=== PATIENT | male | born 1960 | race Caucasian/White ===

== ENCOUNTER 2017-04-08 05:40 | Inpatient (IN) | payer BC ==
[2017-04-06 09:55] LABS: BASOPHILS 0.5 % (0-2); HEMOGLOBIN 14.5 g/dL (13.5-17.5); IMMATURE GRANULOCYTES 0.2 % (0-5); LYMPHOCYTES 21.7 % (15-50); MCH 30.3 pg (26.0-34.0); MCHC 34.5 g/dL (31.0-37.0); MCV 87.9 fL (80.0-100.0); MEAN PLATELET VOLUME 10.6 fL (7.4-10.4); MONOCYTES 7.3 % (2-11); NEUTROPHILS 66.3 % (40-80); PLATELET COUNT 214 10x3/uL (130-400); RBC 4.78 10x6/uL (4.20-6.10); RDW 12.7 % (11.5-14.5); WBC 9.5 10x3/uL (4.8-10.8)
[2017-04-06 10:06] LABS: ANION GAP 12.9 mmol/L (8-16); CALCIUM 9.2 mg/dL (8.5-10.1); CARBON DIOXIDE 26.5 mmol/L (21.0-32.0); CREATININE - SERUM 1.4 mg/dL (0.6-1.3); POTASSIUM - SERUM 4.4 mmol/L (3.5-5.1)
[2017-04-06 10:18] LABS: APTT 26.5 SECONDS (22.8-39.4)
[2017-04-06 10:19] LABS: INR 1.03 (0.85-1.17); PROTIME 13.1 SECONDS (11.6-15.0)
[~2017-04-08] VITALS: Ht 188 cm; Wt 89.5 kg
[2017-04-08] VITALS (13 sets, daily range): BP systolic 137–177; BP diastolic 64–83; Ht 188 cm; Wt 89.5 kg
--- NOTE | ~2017-04-08 | OP ---
PATIENT NAME: CESIA FERNANDEZ MEDICAL RECORD: [id number] :62 LOCATION:[id number] ADMISSION DATE:04/08/17 SURGEON: CELENA ROSE MD DATE OF OPERATION: 04/08/2017 ASSISTANCE NOTE I assisted Dr. Moya with a left carotid endarterectomy and bovine graft patch angioplasty. Due to the complexity of the procedure, it was necessary for two attending surgeons to be present during the procedure. I was present for all the critical portions of the procedure. I scrubbed in as he had opened the left neck and was isolating the left internal jugular vein. My involvement in the operation included some irrigation and suctioning. Assistance with the endarterectomy. Assistance with fashioning the graft patch angioplasty. Eversion of vessels during the endarterectomy. I also sutured about half of the graft patch angioplasty onto the arteriotomy. I assisted with isolation of vessels and with their retraction. I assisted with placement of the vascular shunt and then decannulation of the shunt. I scrubbed out as he was beginning to close the left neck. TRANSINT:[id number] Voice Confirmation ID: [id number] DOCUMENT ID: [id number] CELENA ROSE MD at 0938 CC: GALEN MOYA MD [id number] DICTATION DATE: 04/09/17 1630 SIGN MAKER: 04/09/17 2324 DIS IN 04/10/17 [facility] [address] [place] [address]
--- NOTE | ~2017-04-08 | OP ---
PATIENT NAME: CESIA FERNANDEZ MEDICAL RECORD: [id number] :62 LOCATION:[facility] ADMISSION DATE:04/08/17 SURGEON: RENZO VILLANUEVA MD DATE OF OPERATION: 04/08/2017 PREOPERATIVE DIAGNOSES: Diabetes mellitus, history of multiple transient ischemic attacks, stroke history, significant carotid artery disease, left greater than right. POSTOPERATIVE DIAGNOSES: Diabetes mellitus, history of multiple transient ischemic attacks, stroke history, significant carotid artery disease, left greater than right. PROCEDURE: Left carotid endarterectomy with bovine patch angioplasty. SURGEON: Renzo Villanueva MD CO-SURGEON: Azael Urbano MD FLUIDS: Per anesthesia record. ESTIMATED BLOOD LOSS: 50. ANTICOAGULANTS GIVEN DURING THE CASE: 10,000 of heparin. SPECIMEN: Carotid plaque to pathology. DISPOSITION: Awake to PACU. Neurologically intact, moving all extremities and intact voice with intact lip and tongue movements, answering appropriate questions. INDICATIONS FOR THE PROCEDURE: Mr. Fernandez is a 57-year-old male under the care of Dr. Jeffery, who has had multiple TIAs in the past. A CT was performed, which showed a significant lesion on the left. It was his left eye that was having issues with amaurosis and TIA symptoms. He also has significant peripheral artery disease with a left carotid origin stenosis as well as some disease on the right. We placed him on Eliquis on top of his Plavix for protection. Symptoms stabilized. The risks, alternatives, and benefits of a left CEA were discussed. I felt he had an elevated risk of having an intraoperative stroke and all of this was discussed with him in the clinic setting before the operation and he agreed to proceed. PROCEDURE IN DETAIL: After positive identification, informed consent was obtained, the patient was taken to the operating room, laid supine on the operating table. Monitoring lines included EKG pad and a blood pressure cuff and A-line placed by anesthesia in the left arm before the procedure. The antibiotics were given within 1 hour of incision and SCDs were placed for DVT prophylaxis. An attempt was made to place a Toscano for the case; however, there was difficulty passing the Toscano and urology was consulted. Urology came in. Using a cystoscope, was able place the Toscano. They did feel that there was some injury to the urethra from the Toscano insertion and was able to place the Toscano successfully and there was draining red-tinged urine. Next, we chose to have urology come in and place this given that he was on blood thinners and I did not feel it was appropriate to try any other means. Next, the left neck was outstretched. The distal cervical spine and proximal thoracic spine was OPERATIVE REPORT [id number] CESIA FERNANDEZ supported, was placed over a bump to help with extension of his neck. His head was turned to the right. The neck was then prepped and draped in standard fashion from the ear to the sternum and midline to the shoulder. A surgical timeout was performed and all members agreed to proceed. I began the procedure by first exposing the carotid artery. Utilizing anatomical starr from the mastoid to the sternal notch, an approximately 4 cm incision was made on the anterior aspect of the sternocleidomastoid. Dissection was afforded down through the soft tissues. Platysma muscle was identified and split with electrocautery. Weitlaner was used for retraction. Dissection was afforded down through the soft tissues and the sternocleidomastoid was appreciated. Then again, using blunt dissection, we carefully isolated the internal jugular vein. The facial vein was taken between transfixed ties and helped with our exposure. The carotid artery was identified. We carefully anticoagulated him with 10,000 units of heparin. Of note, he was on Eliquis, aspirin, and Plavix up to the moment of surgery. We continued our dissection and then carefully started to isolate the common carotid artery. Once the common carotid artery was carefully isolated with vessel loops. Next, we started to march up the carotid artery and we located the carotid sinus. It was quite evident there was a considerable amount of plaque within the bulb. This could be palpated externally. We continued first dissecting out the thyroid artery, which was taken between ties. Next, the external was carefully isolated with a vessel loop and then the internal was isolated. We felt that we found possibly the ansa nerve branches. These were carefully deflected softly and we carefully were able to get 2 cm of internal carotid with a nice soft spot distally. We carefully looked at the plaque. The plaque appeared to be about 2.5 cm in length and it was from the mid portion of the carotid up into the internal. Once this was identified and marked, we could feel soft spots on this internal and the common and once all was in readiness and after he was heparinized. we carefully clamped the internal, the common, and then excluded the external in the thyroid artery. Utilizing an 11 blade, the anterior surface of the common carotid artery was opened. Utilizing the Jansen this was extended on to the internal. We next identified nearly occlusive plaque of core with a central ulceration with soft gelatinous tissue inside of it. Utilizing the Henrietta elevator, this was carefully elevated. While elevating the plaque, it gave us a nice medial flap in the middle of the carotid. Utilizing the Jansen, this was opened all the way and we were able to basically transect it off the proximal carotid artery. Utilizing an inversion technique of the internal as well as the external, we were able to pop the plaque out and it was passed off to pathology. We next thoroughly irrigated our endarterectomy site. We carefully removed any remaining small tags of intima and media that were floating within the water. We carefully examined our internal carotid artery and we had nearly perfectly a flush dissection with no area of lip or any concern for areas concerning for dissection. Next, the proximal carotid artery was inspected. There we saw the lip when we transected on to the plaque. This ledge was then tacked down in standard fashion with 7-0 Prolene x 3. These were mattress stitches in a standard fashion. Once this was done, we then took the 30 cm x [address] This is standard fashion. First, placing in the internal carotid artery, this backbled well with some decent pressure. After this was thoroughly de-aired, it was then placed into the common carotid and flow was restored back to the internal carotid artery. After this was done, we then brought the bovine patch to the field. It was tailored in standard fashion and kept in orientation so the was smooth side was down and then with a 6-0 Prolene in standard fashion, the patch angioplasty was performed. Immediately before finishing up the patch angioplasty and before a few bites were left, we OPERATIVE REPORT [id number] CESIA FERNANDEZ removed the shunt in reverse fashion. The field was thoroughly irrigated again and after pressure irrigating the common carotid artery the patch was completed. The sutures were tied and then flow to the external was restored. There was backbleeding from the external and then the common carotid was opened. Utilizing the Doppler, we could hear a biphasic signal in the external and a biphasic signal in the common. After a few minutes of this to ensure that there was no debris to the internal, the internal was then opened and there was a biphasic signal within the distal internal carotid artery. After this was done, we carefully observed this for about 20 minutes to ensure that there was no excessive bleeding or any need for any stitch repair. Once all this was hemostatic, we then put a small layer of fibrillar over our repair and we began to close. The sternocleidomastoid was then tacked back towards the fascia to restore the anatomy. The platysma muscle was then closed with interrupted Vicryls in standard fashion. Monocryl was used to approximate the dermis. Skin glue was applied and then a dressing. After the procedure, Mr. Fernandez was extubated in deep fashion. No coughing was appreciated. He awoke to move all of his extremities, had good brush filler hand strength and was verbalizing appropriately. He was then taken to the cardiovascular ICU for monitoring. TRANSINT:[id number] Voice Confirmation ID: [id number] DOCUMENT ID: [id number] RENZO VILLANUEVA MD at 1604 CC: [id number] DICTATION DATE: 04/08/17 1840 FAMILY INDEPENDENCE CASE MANAGER: 04/09/17 0602 DIS IN 04/10/17 [facility] [id number] [place] [address]
--- NOTE | ~2017-04-08 | OP ---
PATIENT NAME: CESIA FENRANDEZ MEDICAL RECORD: [id number] :62 LOCATION:[facility] ADMISSION DATE:04/08/17 SURGEON: CELENA DOMINGO MD DATE OF OPERATION: 04/08/2017 CONSULT REQUESTED: Renzo Moya MD SURGEON: Celena Domingo MD ANESTHESIA: General anesthesia. REASON FOR CONSULTATION: Inability to be catheterized. PROCEDURES: Cystoscopy, Toscano catheter insertion. CLINICAL HISTORY: This is a 57-year-old male, who has a history of strokes and he is getting a left carotid endarterectomy today. He is using Eliquis and Plavix. The nursing staff attempted to insert a Toscano catheter, but they were unable to get it past. Also significant urethral bleeding was noted. Therefore, urology was requested to come to insert the Toscano catheter for his surgery. DESCRIPTION OF PROCEDURE: I obtained a 21-Lao cystoscope and the patient had been prepped and draped. Looking in with a 30-degree lens and normal saline for irrigation, there was a small mucosal flap in the penile urethra. This was negotiated past and the prostate is nonobstructive. Going into the bladder, cystoscopy visualization was difficult due to the blood in the urine, but no obvious abnormalities were seen in the bladder. A Sensor wire was placed through the scope into the bladder. The scope was then removed, leaving the wire in place. A 16-Lao [place] tip Toscano catheter was then inserted over the wire. Once the catheter was fully in the bladder, the balloon was inflated with 10 cc of sterile water. The wire was then entirely withdrawn. The catheter was put to bag drainage. The patient will be reprepped and redraped and the carotid endarterectomy can proceed. TRANSINT:[id number] Voice Confirmation ID: [id number] DOCUMENT ID: [id number] CELENA DOMINGO MD at 0929 CC: [id number] DICTATION DATE: 04/08/17 1449 WAREHOUSE OPERATIONS ASSOCIATE: 04/08/17 1518 DIS IN 04/10/17 [facility] [id number] [place] [id number]
[~2017-04-08 05:40] MED LIST: ASPIRIN EC81 M1 PO; COLACE100 MG PO; ELIQUIS5 MG PO; FUROSEMIDE20 MG PO; GLIPIZIDE10 MG PO; GLUCOPHAGE1000 MG PO; LEXAPRO20 MG PO; MOBIC7.5 MG PO; NEURONTIN 300300 MG PO; NORVASC5 MG PO; OMEPRAZOLE20 M1 PO; PLAVIX75 MG PO; PRAVACHOL40 MG PO
[2017-04-09] VITALS (26 sets, daily range): BP systolic 91–189; BP diastolic 43–91
[2017-04-10] VITALS (13 sets, daily range): BP systolic 101–157; BP diastolic 47–86
== END 2017-04-10 15:38 | disposition home or self-care (01) | DRG 39 ==
LOC: D.SDCHOLD 05:40 → D.CVICU 18:26
PROVIDERS: Anesthesiology; Surgery
PROC: 03CL0ZZ Extirpation of Matter from Left Internal Carotid Artery, Open Approach (ICD-10-PCS; 2017-04-08)
PROC: 03UL0JZ Supplement Left Internal Carotid Artery with Synthetic Substitute, Open Approach (ICD-10-PCS; 2017-04-08)
PROC: 0T9B80Z Drainage of Bladder with Drainage Device, Via Natural or Artificial Opening Endoscopic (ICD-10-PCS; principal; 2017-04-08 12:00)
DX: I65.22 Occlusion and stenosis of left carotid artery (principal); E11.9 Type 2 diabetes mellitus without complications; Z86.73 Personal history of transient ischemic attack (TIA), and cerebral infarction without residual deficits; I73.9 Peripheral vascular disease, unspecified